=== PATIENT | male | born 1990 | race Caucasian/White ===

== ENCOUNTER 2017-05-01 14:20 | Emergency (ER) | payer SELFPAY ==
[~2017-05-01] VITALS: Ht 172.7 cm; Wt 61.4 kg
[2017-05-01 14:21] VITALS: BP 133/85; PULSE 64; RESP 15; O2SAT 36
--- NOTE | 2017-05-01 14:22 | ED.REPORT ---
HPI- Male Date of Service May 01, 2017 ED Provider: Brandyn Hester MD The patient is a 27 year old male w/ a hx of substance abuse who presents to the ED sent from [place] c/o left testicular pain onset 1100 this morning. He was getting into the shower this morning and felt his "left testicle twist." It began aching 20- minutes after this. The pain has moved from the left testicle to the right testicle. He c/o associated lower abdominal pain earlier in the day which has since abated. He currently uses heroine (0.5g/ day) and methamphetamines. His last use was yesterday evening. Pt was taking Suboxone and has had a couple of slip ups. He is interested in quitting. Pt denies vomiting, nausea, fever, chills, dysuria, hematuria, and diarrhea. Nursing Notes Stated Complaint: TESTICULAR TORSION Chief Complaint: Male Abdominal Pain Nursing Notes Reviewed: Yes Allergies: Coded Allergies: No Known Allergies (Unverified , 05/01/17) Scheduled PRN Oxycodone (Roxicodone) 30 Mg Tablet 30 MG PO Q6H PRN PRN For Pain General Time Seen by MD: 14:21 Chief Complaint Testicle painful left Hx Obtained From: Patient Arrived By: Ambulance Onset Occurred: 1 - 4 hours ago Symptom Duration: Since onset Location: : Testicle left Quality: Painful Severity: Current: Moderate Recent Healthcare: Recent doctor visit Similar Sx Previous: Yes Past Medical History Past Medical History denies Past Surgical History denies Smoking History Unknown if Ever Smoker Social History heroine use every day (0.5g/day) Alcohol Use: Denies alcohol use Drug Use: Meth Other Social History: Local resident Ambulatory Status Independent Review of Systems Constitutional: Denies: Chills, Fever GI: Reports: Abdominal pain, Denies: Nausea, Vomiting Male: Reports Testicular pain, Denies Dysuria, Denies Hematuria Complete sys rev & neg: except as marked. Physical Exam Initial Vital Signs Vital Signs (First) Date Time Temp Pulse Resp B/P Pulse Ox O2 Delivery O2 Flow Rate FiO2 05/01/17 14:21 36.7 64 15 133/85 36 Room Air 8 Initial VS: Reviewed Male Genitourinary: Inspection NL, Penis NL, Testes NL uncircumcised penis, appears normal testes appear normal left testicle lower then right, normally oriented very tender to very light touch, not warm or red General/Constitutional: Awake, Alert, Cooperative Skin: Atraumatic, Color NL, No rash Head / Eyes: Atraumatic, Normocephalic ENT: Atraumatic, Mucous membranes moist Respiratory / Chest: Atraumatic, Breath sounds NL, Breath sounds = bilat Cardiovascular: Heart rate NL, Regular rhythm, Heart sounds NL Back: Atraumatic, Inspection NL, Full range of motion Upper Extremity / MS: Atraumatic, Inspection NL, Full range of motion, No deformity Lower Extremity / Pelvis / MS: Atraumatic, Inspection NL, Full range of motion , No deformity Neurologic: Oriented X3, Speech NL, No motor deficits Interpretation & Diagnostics Interpretation & Diagnostics: TESTICULAR ULTRASOUND IMPRESSION: no acute findings Re-Eval/Medical Decision Med Decision/Clinical Course This gentleman is trying to steer clear of heroin. He is in possession of some Suboxone he required and would like to start using this. He believes that he in fact did have a testicular torsion though there is no current evidence of this now. He understands that he needs to return to the emergency department if this occurs again. Otherwise, he will follow up with urology. I did try to provide him with what I believe to be an adequate supply of oxycodone for 48 hours after which time he will begin using Suboxone. I had a lengthy discussion with him about concomitant use of opiates and understands the risks associated there with. Re-Evaluation/Progress : Time of Eval: 16:47 Re-Evaluation/Progress Note: Normal ultrasound results. Plan for discharge and follow up with urology. Consultation #1: Referral / Consult Name: Juvencio Severino MD Consulted With: Urology Call Returned at: 15:33 Note: Case discussed. Consultation #2: Referral / Consult Name: Juvencio Severino MD Consulted With: Urology Call Returned at: 16:46 Note: Discussed normal US results. Dr. Severino says to discharge pt. Dr. Severino will see him at the clinic. Counseled Regarding: Diagnosis, Lab results, Need for follow-up, When/why to return to ED Discharge & Departure Impression: Primary Impression: Testicular pain Additional Impression: Opiate addiction Disposition: Home Discharge Condition All VS Reviewed: Yes Condition: Stable Patient Instructions: Scrotal Pain (ED) Additional Instructions: Thank you for entrusting us with your care today. Your ultrasound did not show any abnormalities. I have consulted with Dr. Juvencio Severino, urology, and he has agreed to see you at his clinic. I have attached his information, call him Wednesday morning to make an appointment. Return to the Emergency Department if you experience any new or worsening symptoms. I hope you feel better soon! Ibuprofen 800 mg every 8 hours. Oxycodone 30 mg every 6 hours. Referrals: Juvencio Severino MD [facility] Scribe Attestation Portion of this note were transcribed by Ling Arguelles. I, Dr. Hester, personally performed the history, physical exam, and medical decision-making: I reviewed and confirmed the accuracy for the information in the transcribed note. Signed by: silvana Brunner, 05/01/17 1600 copies to: Juvencio Severino MD; [facility] Brandyn Hester MD May 01, 2017 14:22 Ling Arguelles May 01, 2017 14:31
[2017-05-01 17:14] VITALS: BP 133/88; PULSE 62; RESP 20; O2SAT 95
--- NOTE | 2017-05-01 17:38 | DRSVH ---
PROCEDURE: US TESTICULAR SONOGRAM WITH DOPPLER INDICATIONS: testis pain TECHNIQUE: Real-time scanning was performed of the scrotum and testicles, with image documentation. Color and p ulse Doppler interrogation was performed of both testicles. COMPARISON: None. FINDINGS: Right: Testicle is normal in size at 3.4 x 2.1 x 3.0 cm, and homogenous in echotexture. Epididymis is normal in overall size and morphology. No hydrocele or varicoceles. Overlying scrotal skin is no rmal in thickness. Left: Testicle is normal in size at 3.2 x 2.4 x 2.5 cm, and homogeneous in echotexture. Epididymis is normal in overall size and morphology. No hydrocele or varicoceles. Overlying scrotal skin is no rmal in thickness. Doppler: Color and pulse Doppler demonstrate normal and symmetric arterial flow in both testicles. IMPRESSION: No changes are seen on the current study to indicate testicular torsion. Either testicle has abnormal echo pattern, blood flow or peritesticular fluid collection. Dictated by: Willem Ye M.D. on 05/01/2017 at 17:33 Approved by: Willem Ye M.D. on 05/01/2017 at 17:35
[2017-05-01] MEDS ORDERED: OXYC30TA48 PO (19:28)
[2017-05-01 19:34] VITALS: BP 111/76; PULSE 114; RESP 16; O2SAT 95
== END 2017-05-01 19:35 | disposition home or self-care (01) ==
LOC: SED 14:20 → EDBD 14:20 → SED 19:35
DX: N50.812 Left testicular pain (principal); F11.20 Opioid dependence, uncomplicated
CPT/HCPCS: 76870; 93975; 96374; 99284; J1885